=== PATIENT | female | born 1965 | race Caucasian/White ===

== ENCOUNTER 2018-07-28 08:50 | Day surgery (SDC) | payer OTHER ==
[~2018-07-28 08:50] MED LIST: CEFUROXIME250 MG PO; SYNTHROID112 MCG; SYNTHROID137 MCG; URIN D.S. TABLE1 TAB PO
[2018-07-28] MEDS ORDERED: NAPROXEN SODIU550 M1 PO (16:41)
== END 2018-07-28 19:20 | disposition home or self-care (01) ==
LOC: CIR.AMB 08:50
DX: N84.0 Polyp of corpus uteri (principal); D25.0 Submucous leiomyoma of uterus